=== PATIENT | female | born 1970 | race Caucasian/White ===

== ENCOUNTER 2021-07-19 12:12 | Emergency (ER) | payer BC ==
[2021-07-19 13:25] LABS: HEMOGLOBIN 11.5 gm/dl (12.3-15.3); RED BLOOD COUNT 4.1 M/UL (4.00-5.10); WHITE BLOOD COUNT 11.8 K/UL (4.5-11.0)
[2021-07-19 13:51] LABS: BUN/CREATININE RATIO 15 (0-10)
[2021-07-19] MEDS ORDERED: ZITHROMAX250 MG PO (17:08)
[2021-07-19] MEDS ORDERED: PREDNISONE 20 M20 MG PO (17:17)
== END 2021-07-19 17:35 | disposition home or self-care (01) ==
LOC: ER1 12:12
PROVIDERS: Emergency Medicine
DX: J96.01 Acute respiratory failure with hypoxia (principal); J45.909 Unspecified asthma, uncomplicated; Z20.822 Contact with and (suspected) exposure to COVID-19
CPT/HCPCS: 0240U; 71045; 80053; 81001; 83605; 83735; 84100; 85025; 87040; 87086; 93005; 94664; 96374; 99285; J1100; J7030; Q9967